=== PATIENT | female | born 1990 | race African-American/Black ===

== ENCOUNTER 2020-01-28 11:59 | Inpatient (IN) | payer MEDICAID ==
[~2020-01-28] VITALS: Ht 160 cm; Wt 96.4 kg
[2020-01-28 13:18] LABS: HEMATOCRIT 35.6 % (36.0-48.0); HEMOGLOBIN 11.6 g/dL (12-16); MCH 24.5 pg (26.0-34.0); MCHC 32.6 g/dL (31.0-37.0); MCV 75.3 fL (80.0-100.0); MEAN PLATELET VOLUME 9.9 fL (7.4-10.4); RBC 4.73 10x6/uL (4.00-5.40); WBC 7.5 10x3/uL (4.8-10.8)
[2020-01-28] MEDS ORDERED: PRENAVITE1 TAB PO (13:35)
[2020-01-28] MEDS ORDERED: TYLENOL W/CODEI1 TAB PO (13:36)
[2020-01-28 13:54] VITALS: BP 155/88; Ht 160 cm; Wt 96.4 kg
[2020-01-28 15:00] LABS: ALBUMIN 2.8 g/dL (3.4-5.0); ALKALINE PHOSPHATASE 230 U/L (30-120); ALT (SGPT) 20 U/L (10-68); BILIRUBIN - TOTAL 0.31 mg/dL (0.2-1.3); CALC OSMOLALITY 276 mosm/kg (275-300); CALCIUM 8.5 mg/dL (8.5-10.1); CARBON DIOXIDE 22.5 mmol/L (21.0-32.0); CHLORIDE - SERUM 106 mmol/L (98-107); CREATININE - SERUM 0.6 mg/dL (0.6-1.3); GLUCOSE 109 mg/dL (74-106); POTASSIUM - SERUM 4.3 mmol/L (3.5-5.1); PROTEIN - SERUM 6.1 g/dL (6.4-8.2); SODIUM 140 mmol/L (136-145); UREA NITROGEN 5 mg/dL (7-18); URIC ACID 2.6 mg/dL (2.6-7.2); eGFR NON AFRICAN AMERICAN > 90 mL/min (90-120)
[2020-01-28 22:45] LABS: HEMATOCRIT 33.8 % (36.0-48.0); HEMOGLOBIN 11.3 g/dL (12-16); MCH 24.9 pg (26.0-34.0); MCHC 33.4 g/dL (31.0-37.0); MCV 74.4 fL (80.0-100.0); MEAN PLATELET VOLUME 9.8 fL (7.4-10.4); RBC 4.54 10x6/uL (4.00-5.40)
[2020-01-28 22:47] LABS: MAGNESIUM - SERUM 3.9 mg/dL (1.8-2.4)
[2020-01-28 22:49] LABS: WBC 11.2 10x3/uL (4.8-10.8)
[2020-01-29] VITALS (8 sets, daily range): BP systolic 114–138; BP diastolic 56–80
[2020-01-29 06:11] LABS: RAPID PLASMA REAGIN Non Reactive (Non Reactive)
--- NOTE | 2020-01-29 07:15 | NUR ---
BONDING WITH INFANT AND PREPARING TO BREAST FEED. DENIES NEEDS AT THIS TIME. POC DISCUSSED WITH HER AND SIGNIFICANT OTHER, BOTH VERBALIZE UNDERSTANDING AND DENY QUESTION. MGSO4 CHECK WILL BE DONE AT 0800 SCHEDULED.
--- NOTE | 2020-01-29 08:00 | NUR ---
SHIFT ASSESSMENT COMPLETED. VSS. FUNDUS FIRM, MIDLINE AND U1 WITH SMALL AMT RUBRA LOCHIA, NO CLOTS NOTED. MGSO4 CHECK COMPLETED PER FLOWSHEET. POC DISCUSSED WITH AND PT EDUCATED ON MEDS AND PP CARE. PERICARE DONE. PERIPADS, TOWELS AND CHUX CHANGED. SCD'S ON BLE. DENIES PAIN AND NEEDS. INFANT IN FOB'S ARMS. ICE WATER PROVIDED. WILL CONTINUE TO MONITOR. BED IN LOW POSITION WITH SRUP X2. BARRERA DRAINING CLEAR LIGHT YELLOW URINE TO BEDSIDE DRAINAGE.
--- NOTE | 2020-01-29 09:00 | NUR ---
MGSO4 CHECK DONE PER FLOWSHEET. PT REQUESTING TO EAT, WILL NOTIFY MD. DENIES PAIN AND ADDITIONAL NEEDS. VSS.
[2020-01-29 10:30] LABS: HEMATOCRIT 30.6 % (36.0-48.0); HEMOGLOBIN 10.1 g/dL (12-16); MCH 24.4 pg (26.0-34.0); MCV 73.9 fL (80.0-100.0); MEAN PLATELET VOLUME 8.7 fL (7.4-10.4); RBC 4.14 10x6/uL (4.00-5.40); RDW 15.9 % (11.5-14.5); WBC 13.9 10x3/uL (4.8-10.8)
--- NOTE | 2020-01-29 11:08 | NUR ---
MGSO4 CHECK DONE PER FLOWSHEET. VSS. PT PROVIDED WITH JELLO, CHICKEN BROTH, AND ICE WATER. DENIES PAIN AND ADDITIONAL NEEDS. SPOUSE AT BEDSIDE, SUPPORTIVE AND ATTENTIVE TO PT AND NEEDS.
--- NOTE | 2020-01-29 12:20 | NUR ---
MGSO4 DONE PER FLOWSHEET. VSS. FUNDUS FIRM, MIDLINE AND U1 WITH SMALL AMT RUBRA LOCHIA, NO CLOTS NOTED. PERICARE DONE. TOWELS PADS AND CHUX CHANGED. SPOUSE REMAINS AT BEDSIDE, SUPPORTIVE AND ATTENTIVE TO PT AND .
--- NOTE | 2020-01-29 14:40 | NUR ---
DR BOYD CALLED UNIT. REPORT GIVE ON PT STATUS. ORDER RCVD TO D/C MAG IF PT HAS HAD 200+ ML OUTPUT X 2-3 HRS AND THEN HAD A DROP IN OUTPUT. PT'S OUTPUT AT 6986-2130 WAS 300+ML AND OUTPUT AT 1437 IS 150. MAGNESIUM SULFATE D/C'D PER ORDERS.
--- NOTE | 2020-01-29 15:30 | NUR ---
PT TRANSFERRED TO ROOM 1220 AND ORIENTED TO ROOM AND BATHROOM. PT DENIES PAIN OR NEEDS AT THIS TIME.
--- NOTE | 2020-01-29 16:40 | NUR ---
MEAL TRAY DELIVERED. PT DENIES PAIN OR NEEDS.
--- NOTE | 2020-01-29 17:13 | NUR ---
PT FINISHED 100% OF REGULAR MEAL TRAY. DENIES S/S OF DISTRESS OR NEEDS.
--- NOTE | 2020-01-29 17:58 | NUR ---
MOTRIN GIVEN PER ORDERS. SEE EMAR FOR ADMINISTRATION. PT RATES PAIN 6/10 CRAMPING. DENIES FURTHER NEEDS AT THIS TIME. WILL CONT TO MONITOR PRN.
--- NOTE | 2020-01-29 18:23 | NUR ---
ROUNDS MADE. PT REPORTS PAIN 'IS GETTING A LITTLE BETTER.' DENIES ANY FURTHER NEEDS.
--- NOTE | 2020-01-29 18:32 | NUR ---
MOM TO NURSE DESK REPORTING VOIDED ON BLANKETS. CLEAN LINENS PROVIDED. MOM REQUESTS ASSISTANCE IN SWADDLING INFANT. SAME PROVIDED. INFANT PLACED BACK IN DAD'S ARMS FOR FEEDING.
--- NOTE | 2020-01-29 19:50 | NUR ---
ASSESSMENT PER FLOW SHEET, VS OBTAINED, PT C/O THAT SALINE LOCK IS "REAL SORE FEELING", REQUESTS FOR IT TO BE TAKEN OUT, SALINE LOCK REMOVED, TIP INTACT, PRESSURE HELD, BANDAID APPLIED, FF, ML, U/2, LITE BLEEDING NOTED WITH NO CLOTS, PT DENIES PAIN, REPORTS FLATUS, SMALL BM TODAY, AND VOIDING WITH NO DIFFICULTY, FOB HOLDING INFANT
--- NOTE | 2020-01-29 20:02 | NUR ---
SPOKE TO DALIA ORTIZ, SLIDE MAKER NURSE REGARDING BP MED AND MAG BEING D/C'ED AROUND 3PM, SHE STATES "I WOULD DEFINITELY GO AHEAD AND ADM IT", ADM BP MED PO PER MD ORDERS, SEE EMAR, PT DENIES NEEDS AT THIS TIME, FOB HOLDING
--- NOTE | 2020-01-29 21:00 | NUR ---
PT AMB TO ADVERTISING SOLICITOR, GAIT STEADY, REQUESTED AND PROVIDED TOWELS AND WASH CLOTHS, PT STATES "I NEED TO PUT ON SOMETHING MORE STYLISH", DENIES FURTHER NEEDS, IN OPEN CRIB CART AND FOB AT BEDSIDE
--- NOTE | 2020-01-29 21:42 | NUR ---
PT SITTING UP IN BED HOLDING, INFANT, REPORTS "SHOWER FELT GOOD", DENIES NEEDS OR PAIN AT THIS TIME, BEDDING PROVIDED TO FOB
--- NOTE | 2020-01-29 22:05 | NUR ---
PT AMB TO INSPECTOR BALANCE BRIDGE, GAIT STEADY, REQUESTED AND PROVIDED KARINA CRACKERS AND PEANUT BUTTER, DENIES FURTHER NEEDS, PT BACK TO ROOM
--- NOTE | 2020-01-29 23:15 | NUR ---
PT AMB TO PRE SALES NETWORK ENGINEER, GAIT STEADY, REQUESTED AND SERVED SANDWICH TRAY, DENIES FURTHER NEEDS, PT BACK TO ROOM
--- NOTE | 2020-01-29 23:56 | NUR ---
PT GETTING READY TO EAT "TACO NELSON", VS OBTAINED, C/O CRAMPING, ADM MOTRIN PER MD ORDERS, SEE EMAR, PT DENIES FURTHER NEEDS, INFANT IN OPEN CRIB CART AND FOB AT BEDSIDE
--- NOTE | 2020-01-30 01:40 | NUR ---
INFANT TO ROOM VIA OPEN CRIB CART PER THIS RN, PT INFORMED THAT NSY NURSE HAD TO GO TO A DELIVERY, INFANT IS TO EAT AT 3AM, BOTTLE PROVIDED, PT VERBALIZES UNDERSTANDING, DENIES NEEDS, FOB AT BEDSIDE
--- NOTE | 2020-01-30 02:30 | NUR ---
PT HOLDING INFANT, CONSUMED 30MLS OF FORMULA WITH NO DIFFICULTY AND CHANGED NO DIAPER AT THIS TIME PER PT'S REPORT, PT DENIES NEEDS OR PAIN, FOB AT BEDSIDE
[2020-01-30 03:32] VITALS: BP 132/75
--- NOTE | 2020-01-30 03:32 | NUR ---
PT AWAKE, HOLDING INFANT, VS OBTAINED, ADM BP MED PO PER MD ORDERS, SEE EMAR, WITH FRESH H20, PT DENIES NEEDS, FOB AT BEDSIDE
--- NOTE | 2020-01-30 04:32 | NUR ---
PT INDUSTRIAL FABRIC CUTTER LIGHT, PT UP IN BR AT THIS TIME, REQUESTED AND PROVIDED NEVILLE PADS AND PANTIES, PT INQUIRES ABOUT A STOOL SOFTENER, INFORMED PT THAT I WILL NEED TO CHECK WITH THE DOCTOR, BUT HE IS TIED UP WITH AN EMERGENCY AT THIS MOMENT, OFFERED AND SERVED APPLE JUICE, PT DENIES FURTHER NEEDS OR PAIN, FOB BOTTLE FEEDING INFANT
--- NOTE | 2020-01-30 06:13 | NUR ---
PT AWAKE, ADM MOTRIN PO PER MD ORDERS, SEE EMAR, PT DENIES FURTHER NEEDS, FOB HOLDING
[2020-01-30 07:27] VITALS: BP 123/71
[2020-01-30 07:32] LABS: BASOPHILS 0.3 % (0-2); EOSINOPHILS 1.3 % (0-7); HEMATOCRIT 29.8 % (36.0-48.0); HEMOGLOBIN 9.5 g/dL (12-16); IMMATURE GRANULOCYTES 0.4 % (0-5); LYMPHOCYTES 30.9 % (15-50); MCH 24.1 pg (26.0-34.0); MCHC 31.9 g/dL (31.0-37.0); MCV 75.6 fL (80.0-100.0); MEAN PLATELET VOLUME 8.9 fL (7.4-10.4); MONOCYTES 12.2 % (2-11); NEUTROPHILS 54.9 % (40-80); PLATELET COUNT 312 10x3/uL (130-400); RBC 3.94 10x6/uL (4.00-5.40); RDW 16.3 % (11.5-14.5)
[2020-01-30 07:33] LABS: WBC 10.1 10x3/uL (4.8-10.8)
--- NOTE | 2020-01-30 07:33 | NUR ---
AWAKE- ASSESSMENT DONE. VERBAL RESPONSES APPRO TO QUESTIONS. STATES IS HAVING SOME CRAMPING. RATES PAIN A 6-7. STATES THAT MOTRIN IS NOT HELPING MUCH. DENIES NEED FOR OTHER MEDICATION AT THIS TIME. REG DIET SERVED.
--- NOTE | 2020-01-30 08:49 | NUR ---
RECOMMENDED FOR T-DAP PER VACCINE WEB SITE. INFORMATION FORM ON T-DAP GIVEN TO PT. STATES SHE WILL TAKE VACCINE.
--- NOTE | 2020-01-30 09:36 | NUR ---
T-DAP AND MMR GIVEN. DENIES NEEDS. FAMILY AT BEDSIDE.
--- NOTE | 2020-01-30 10:21 | NUR ---
DISCHARGE INST VERBAL AND WRITTEN GIVEN. PFW POST INST AND AWHONN GUIDELINES SHEET GIVEN. PT STATES UNDERSTANDING. SEE ALSO SIGNED DISCHARGE INST SHEET. PT UNDERSTANDS TO CALL ON SATURDAY FOR 2 WEEK APPOINTMENT AND TO VENEER PULLER SCRIPT. NO SCRIPTS TO GIVE PT FROM HERE. INFORMED THAT MAY TAKE TYLEON OR IBUPROFEN FOR CRAMPING. PT HEALTH SUMMARY GIVEN. DENIES QUESTIONS.
--- NOTE | 2020-01-30 11:11 | NUR ---
DISCHARGED HOME WITH - TO AUTO VIA W/C. SIGN. OTHER AT SIDE.
== END 2020-01-30 11:10 | disposition home or self-care (01) | DRG 807 ==
LOC: D.LD 11:59 → D.WS 01-29 13:30
PROVIDERS: Student in an Organized Health Care Education/Training Program; ADMIT Obstetrics & Gynecology; ATTEND Obstetrics & Gynecology
PROC: 10907ZC Drainage of Amniotic Fluid, Therapeutic from Products of Conception, Via Natural or Artificial Opening (ICD-10-PCS; 2020-01-28)
PROC: 3E033VJ Introduction of Other Hormone into Peripheral Vein, Percutaneous Approach (ICD-10-PCS; 2020-01-28)
PROC: 10E0XZZ Delivery of Products of Conception, External Approach (ICD-10-PCS; principal; 2020-01-29)
DX: O14.14 Severe pre-eclampsia complicating childbirth (principal); Z37.0 Single live birth; Z3A.38 38 weeks gestation of pregnancy